=== PATIENT | female | born 1945 | race Caucasian/White ===

== ENCOUNTER 2023-10-18 13:22 | Observation (INO) | payer OTHER ==
[2023-10-18 14:30] LABS: BASO % 0.5 % (0-2.0); EOS % 2.5 % (0-4.5); HEMATOCRIT 31.4 % (32.4-45.2); HEMOGLOBIN 10.2 GM/dL (10.7-15.3); LYMPH % 19.1 % (8-40); MCH 27.5 pg (25.7-33.7); MCHC 32.6 g/dl (32.0-36.0); MEAN CELL VOLUME 84.4 fl (80-96); MEAN PLT VOLUME 7.9 fl (7.5-11.1); NEUT % 68.9 % (42.8-82.8); PLATELET COUNT 265 10^3/uL (134-434); RBC 3.72 M/mm3 (3.60-5.2); RDW 14.4 % (11.6-15.6); WHITE BLOOD COUNT 6.6 K/mm3 (4.0-10.0)
[2023-10-18 14:48] LABS: INR 0.99 (0.83-1.09); PROTHROMBIN TIME (PATIENT) 11.4 SEC (9.7-13.0)
[2023-10-18 14:50] LABS: POTASSIUM 4.6 mmol/L (3.5-5.1)
[2023-10-18 14:51] LABS: ACTIVATED PTT 29.7 SECONDS (25.2-36.5)
[2023-10-18 14:52] LABS: ALBUMIN 3.5 g/dl (3.4-5.0); BLOOD UREA NITROGEN 37.8 mg/dL (7-18); MAGNESIUM 2.2 mg/dL (1.8-2.4)
[2023-10-18 14:55] LABS: PHOSPHOROUS 3.3 mg/dL (2.5-4.9)
[2023-10-18 14:56] LABS: CREATININE 1.3 mg/dL (0.55-1.3)
[2023-10-18 14:57] LABS: BILIRUBIN,TOTAL 0.4 mg/dL (0.2-1); TOT PROT 7.4 g/dl (6.4-8.2)
[2023-10-18 15:00] LABS: EPI CELLS 8 /uL (0-25.1); HYALINE CASTS 0 /uL (0-3.1); PH,URINE 5.5 (5.0-8.0); URINE APPEARANCE CLEAR; URINE BACTERIA 99 /uL (0-1359); URINE BILIRUBIN NEGATIVE (NEGATIVE); URINE COLOR YELLOW; URINE GLUCOSE (UA) 2+ (NEGATIVE); URINE KETONE NEGATIVE (NEGATIVE); URINE LEUK ESTERASE 1+ (NEGATIVE); URINE NITRITE NEGATIVE (NEGATIVE); URINE PROTEIN NEGATIVE (NEGATIVE); URINE RBC 11 /uL (0-23.9); URINE UROBILINOGEN 0.2 mg/dL (0.2-1.0); URINE WBC 31 /uL (0-25.8)
[2023-10-18] MEDS ORDERED: LIDOCAINE 4% PATCH TP ONE (15:36)
[2023-10-18] MEDS ORDERED: CEFTRIAXONE 1 GM/50 ML BAG ONE (15:37)
[2023-10-18] MEDS: LIDOCAINE 4% PATCH TP ONE (15:58)
[2023-10-18] MEDS: SODIUM CHLORIDE 0.9% 500 ML INFUS.BAG IV ONE (16:20)
[2023-10-18] MEDS ORDERED: SULINDAC 200 MG PO PRN (18:31)
[2023-10-18] MEDS: SODIUM CHLORIDE 1,000 ML IV SCH (19:36)
[2023-10-18] MEDS: risperiDONE 0.5 MG TABLET PO SCH (21:51)
[2023-10-18] MEDS: ATORVASTATIN CA 40 MG TABLET (FP) PO SCH (21:51)
[2023-10-18] MEDS: GABAPENTIN 300 MG CAPSULE PO SCH (21:51)
[2023-10-18] MEDS: HEPARIN NA (PORCINE) 5,000 UNITS/ML 1ML VIAL SQ SCH (21:51)
[2023-10-18] MEDS: ACETAMINOPHEN 325 MG TABLET (FP) PO PRN (21:52)
[2023-10-18] MEDS ORDERED: PATIENT'S OWN MEDICATION (NON-FORMULARY) (Diclofenac Sodium 0.01 MG/MG Gel) TP SCH (22:00)
[2023-10-18 22:17] LABS: BASO % 0.6 % (0-2.0); EOS % 2.2 % (0-4.5); HEMOGLOBIN 9.2 GM/dL (10.7-15.3); LYMPH % 22.9 % (8-40); MCH 27.8 pg (25.7-33.7); MCHC 32.8 g/dl (32.0-36.0); MEAN CELL VOLUME 84.7 fl (80-96); MEAN PLT VOLUME 8.3 fl (7.5-11.1); MONO % 10.2 % (3.8-10.2); NEUT % 64.1 % (42.8-82.8); PLATELET COUNT 237 10^3/uL (134-434); RBC 3.31 M/mm3 (3.60-5.2); RDW 14.6 % (11.6-15.6); WHITE BLOOD COUNT 7.2 K/mm3 (4.0-10.0)
[2023-10-18 22:35] VITALS: BMI 24.4
[2023-10-18] MEDS: LIDOCAINE PATCH REMOVAL MC SCH ×2 (22:55)
[2023-10-19] MEDS: INSULIN ASPART SLIDING SCALE (NOVOLOG) 1 VIAL SQ SCH (07:03)
[2023-10-19 09:00] LABS: ALBUMIN 3.2 g/dl (3.4-5.0); CALCIUM 8.8 mg/dL (8.5-10.1); MAGNESIUM 1.9 mg/dL (1.8-2.4)
[2023-10-19 09:04] LABS: TOT PROT 6.5 g/dl (6.4-8.2)
[2023-10-19 09:05] LABS: BILIRUBIN,TOTAL 0.6 mg/dL (0.2-1); BLOOD UREA NITROGEN 24.3 mg/dL (7-18)
[2023-10-19] MEDS ORDERED: NAPROXEN 250 MG TABLET PO PRN (09:48)
[2023-10-19] MEDS ORDERED: ENOXAPARIN NA (PORCINE) 40 MG/0.4 ML DISP.SYRIN SQ SCH (10:00)
[2023-10-19] MEDS ORDERED: CEFTRIAXONE 1,000 GM in DEXTROSE 5%-WATER - 50 ML IVPB ONE (10:00)
[2023-10-19] MEDS: CEFTRIAXONE 1 GM in DEXTROSE 5%-WATER - 50 ML IVPB ONE (10:20)
[2023-10-19] MEDS: LISINOPRIL 5 MG TABLET PO SCH (10:21)
[2023-10-19] MEDS: LIDOCAINE 4% PATCH TP SCH (10:21)
[2023-10-19] MEDS: ESCITALOPRAM OXALATE 20 MG TABLET PO SCH (10:21)
[2023-10-19] MEDS: METHYL SALICYLATE/MENTHOL OINT 30 GM TUBE TP SCH (11:31)
[2023-10-19] MEDS: CEPHALEXIN MONOHYDRATE 500 MG CAPSULE (UD) PO SCH (13:47)
[2023-10-20 08:53] LABS: BASO % 0.8 % (0-2.0); EOS % 2.7 % (0-4.5); HEMATOCRIT 31.2 % (32.4-45.2); HEMOGLOBIN 10.3 GM/dL (10.7-15.3); LYMPH % 29.6 % (8-40); MCH 27.4 pg (25.7-33.7); MCHC 33.2 g/dl (32.0-36.0); MEAN CELL VOLUME 82.7 fl (80-96); MEAN PLT VOLUME 8.2 fl (7.5-11.1); MONO % 10.1 % (3.8-10.2); NEUT % 56.8 % (42.8-82.8); PLATELET COUNT 260 10^3/uL (134-434); RBC 3.77 M/mm3 (3.60-5.2); RDW 14.3 % (11.6-15.6); WHITE BLOOD COUNT 5.9 K/mm3 (4.0-10.0)
[2023-10-20 09:09] LABS: POTASSIUM 4.2 mmol/L (3.5-5.1)
[2023-10-20 09:10] LABS: BLOOD UREA NITROGEN 18.7 mg/dL (7-18)
[2023-10-20] MEDS: LISINOPRIL 10 MG TABLET PO SCH (09:38)
[2023-10-20] MEDS: ESCITALOPRAM OXALATE 10 MG TABLET PO SCH (11:30)
[2023-10-20] MEDS: MELATONIN 5 MG TABLETS PO SCH (21:35)
[2023-10-20] MEDS: LORazepam 0.5 MG TABLET PO SCH (21:35)
[2023-10-21 13:34] VITALS: RESP 20
[2023-10-21 18:31] VITALS: BP 150/73; PULSE 81; TEMP 98.2
== END 2023-10-21 19:24 ==
LOC: JER 13:22 → JERBED 17:08 → J7W 18:48
PROVIDERS: ADMIT Internal Medicine; ATTEND Nurse Practitioner
PROC: 3E023GC Introduction of Other Therapeutic Substance into Muscle, Percutaneous Approach (ICD-10-PCS; principal; 2023-10-18)
DX: N39.0 Urinary tract infection, site not specified (principal); G93.41 Metabolic encephalopathy; I95.9 Hypotension, unspecified; E11.22 Type 2 diabetes mellitus with diabetic chronic kidney disease; R53.1 Weakness; F03.90 Unspecified dementia, unspecified severity, without behavioral disturbance, psychotic disturbance, mood disturbance, and anxiety; E86.1 Hypovolemia; E11.40 Type 2 diabetes mellitus with diabetic neuropathy, unspecified; R10.2 Pelvic and perineal pain; I12.9 Hypertensive chronic kidney disease with stage 1 through stage 4 chronic kidney disease, or unspecified chronic kidney disease; N18.30 Chronic kidney disease, stage 3 unspecified
CPT/HCPCS: 0241U-QW; 36415; 71045-TC-FY; 80048; 80053; 81003; 82962; 83735; 84100; 84484; 85025; 85610; 85730; 86850; 86900; 86901; 87086; 87186; 93005; 93010; 96365; 96372; 96375; 97116-GP; 97162-GP; 99285-25; G0378; J1644